=== PATIENT | female | born 1940 | race Caucasian/White ===

== ENCOUNTER 2018-12-12 06:29 | Emergency (ER) | payer MEDICARE, OTHER ==
[~2018-12-12] VITALS: Ht 165.1 cm; Wt 83.4 kg
[2018-12-12 07:23] LABS: CLARITY,URINE SLIGHTLY CLOUDY (Clear); COLOR,URINE YELLOW (Yellow); GLUCOSE, URINE NEGATIVE (Neg); KETONES,URINE NEGATIVE (Neg); LEUKOCYTE ESTERASE ,URINE MODERATE (Neg); NITRITES, URINE NEGATIVE (Neg); OCCULT BLOOD,URINE NEGATIVE (Neg); PROTEIN,URINE NEGATIVE (Neg); UA COLLECTION TYPE CLN CATCH MIDSTREAM; UROBILINOGEN,URINE 0.2 E.U/dL (0.2-1.0)
[2018-12-12 07:29] LABS: BACTERIA,URINE FEW /HPF (Neg); RBC,URINE NONE SEEN /HPF (0-2)
[2018-12-12 07:30] LABS: SQUAMOUS EPITHELIAL CELL,UR MANY /LPF (FEW)
[2018-12-12] MEDS ORDERED: pantoprazole 40 MG vial IV ONE (07:45)
[2018-12-12] MEDS ORDERED: ondansetron/PF 4mg/2ml inj IV ONE (07:45)
[2018-12-12] MEDS ORDERED: normal saline 1000ML IV soln IVB ONE (07:45)
[2018-12-12 07:50] LABS: BASOPHILS % (AUTO) 0.4 % (0-1); EOSINOPHILS # (AUTO) 0.1 X10'3 (0-0.9); HEMOGLOBIN 11.6 g/dl (12.0-16.0); LYMPHOCYTES # (AUTO) 0.9 X10'3 (1.1-4.8); LYMPHOCYTES % (AUTO) 9.8 % (21-51); MEAN CORPUSCULAR HEMOGLOBIN 31.9 PG (27.0-31.0); MEAN CORPUSCULAR HGB CONC 35.3 g/dL (33.0-36.5); MEAN CORPUSCULAR VOLUME 90.4 FL (78-98); MEAN PLATELET VOLUME 8.7 FL (7.4-10.4); MONOCYTES # (AUTO) 0.8 X10'3 (0-0.9); MONOCYTES % (AUTO) 8.8 % (2-12); NEUTROPHILS # (AUTO) 7.3 X10'3 (1.8-7.7); PLATELET COUNT 168 X10'3 (140-440); RED BLOOD COUNT 3.65 X10'6 (4.20-5.60); WHITE BLOOD COUNT 9.2 X10'3 (4.5-11.0)
[2018-12-12 08:04] LABS: ALANINE AMINOTRANSFERASE 45 U/L (12-78); ALBUMIN 3.6 G/DL (3.4-5.0); ALBUMIN/GLOBULIN RATIO 0.9 (1.1-1.5); ALKALINE PHOSPHATASE 94 IU/L (46-116); AMYLASE 42 U/L (25-115); ANION GAP 9 (8-16); ASPARTATE AMINO TRANSFERASE 20 U/L (10-37); BILIRUBIN,TOTAL 1.2 MG/DL (0.1-1.0); BLOOD UREA NITROGEN 13 MG/DL (7-18); CALCIUM 9.3 MG/DL (8.5-10.1); CHLORIDE 94 MMOL/L (99-107); CREATININE 0.81 MG/DL (0.40-0.90); GLUCOSE 117 MG/DL (70-104); LIPASE 95 U/L (73-393); SODIUM 130 MMOL/L (135-145); TOTAL CARBON DIOXIDE 26.8 MMOL/L (24-32); TOTAL PROTEIN 7.4 G/DL (6.4-8.2); eGFR 69 ML/MIN
[2018-12-12] MEDS ORDERED: iohexol 300mg/ml 100ml inj. ONE (08:04)
[2018-12-12] MEDS ORDERED: morphine 2 MG/ML inj. syringe IV PRN (08:40)
--- NOTE | 2018-12-12 09:51 | NUR ---
Pt resting comfortably, family at bedside. Pt reports pain 0/10. Pt states nausea has resolved and reports she is feeling much better.
[2018-12-12] MEDS ORDERED: metroNIDAZOLE 500mg tablet PO ONE (10:00)
[2018-12-12] MEDS ORDERED: ciprofloxacin 250mg tablet PO ONE (10:00)
[2018-12-12] MEDS ORDERED: METR-159 PO (10:04)
[2018-12-12] MEDS ORDERED: CIPR-230 PO (10:04)
[2018-12-12 10:12] VITALS: BP 144/75
[2018-12-12] MEDS ORDERED: AMOX-580 PO (10:23)
== END 2018-12-12 10:32 | disposition home or self-care (01) ==
LOC: ER 06:30
DX: K57.92 Diverticulitis of intestine, part unspecified, without perforation or abscess without bleeding (principal); I10 Essential (primary) hypertension; E78.00 Pure hypercholesterolemia, unspecified; K21.9 Gastro-esophageal reflux disease without esophagitis; G89.29 Other chronic pain; M54.9 Dorsalgia, unspecified; Z90.710 Acquired absence of both cervix and uterus; Z88.1 Allergy status to other antibiotic agents
CPT/HCPCS: 36415; 71046; 74177; 80053; 81001; 82150; 83690; 85025; 85610; 96374; 96375; 99284; C9113; J2405; J7030; Q9967; J3490

== ENCOUNTER 2019-09-24 06:59 | Day surgery (SDC) | payer MEDICARE, OTHER ==
[~2019-09-24] VITALS: Ht 165.1 cm; Wt 65.7 kg
[~2019-09-24 06:59] MED LIST: OMEP20CA15 PO; SIMV40TA PO; UBID10CA4
[2019-09-24 07:34] VITALS: BP 116/70
[2019-09-24] MEDS ORDERED: ONDA8TAB6 PO (07:42)
[2019-09-24] MEDS ORDERED: IBUP-1986 PO (07:42)
[2019-09-24] MEDS ORDERED: HYDR-4383 PO (07:42)
[2019-09-24] MEDS ORDERED: ASPI81TA52 PO (07:42)
[2019-09-24 08:25] VITALS: BP 129/66
--- NOTE | 2019-09-24 08:30 | NUR ---
no fluid to do paracentesis.
== END 2019-09-24 08:40 | disposition home or self-care (01) ==
LOC: SSTAY O 06:59
PROVIDERS: ATTEND Radiology Diagnostic Radiology
DX: R18.8 Other ascites (principal); Z88.1 Allergy status to other antibiotic agents
CPT/HCPCS: 76705

== ENCOUNTER 2019-10-23 07:48 | Day surgery (SDC) | payer MEDICARE, OTHER ==
[~2019-10-23] VITALS: Ht 165.1 cm; Wt 75.3 kg
[~2019-10-23 07:48] MED LIST changes: +ASPI81TA52 PO; +HYDR-4383 PO; +IBUP-1986 PO; +ONDA8TAB6 PO
[2019-10-23 08:05] VITALS: BP 123/76
[2019-10-23] MEDS ORDERED: albumin 25% 100mL bottle x 1 IV PRN (08:20)
[2019-10-23 08:50] VITALS: BP 123/76
[2019-10-23 08:53] VITALS: BP 123/66
[2019-10-23 09:00] VITALS: BP 123/59
[2019-10-23] MEDS ORDERED: PROC-8 PO (09:08)
[2019-10-23] MEDS ORDERED: MIRT15TA PO (09:08)
[2019-10-23] MEDS ORDERED: CYCL-394 PO (09:08)
[2019-10-23] MEDS ORDERED: OXYC-658 PO (09:08)
[2019-10-23] MEDS ORDERED: ALPR-384 PO (09:08)
[2019-10-23] MEDS ORDERED: OLAN5TAB5 PO (09:08)
[2019-10-23 09:15] VITALS: BP 125/65
== END 2019-10-23 09:45 | disposition home or self-care (01) ==
LOC: SSTAY O 07:48
PROVIDERS: ATTEND Radiology Diagnostic Radiology
DX: R18.8 Other ascites (principal); I10 Essential (primary) hypertension; E78.5 Hyperlipidemia, unspecified; K21.9 Gastro-esophageal reflux disease without esophagitis; G89.29 Other chronic pain; E87.1 Hypo-osmolality and hyponatremia; Z90.710 Acquired absence of both cervix and uterus; Z96.653 Presence of artificial knee joint, bilateral; Z98.890 Other specified postprocedural states; Z88.1 Allergy status to other antibiotic agents; Z91.041 Radiographic dye allergy status; Z79.82 Long term (current) use of aspirin; Z79.899 Other long term (current) drug therapy
CPT/HCPCS: 49083; C1729; 32555